=== PATIENT | female | born 1970 | race Caucasian/White ===

== ENCOUNTER 2022-04-08 07:50 | Outpatient (CLI) | payer BC, SELFPAY ==
--- NOTE | 2022-04-08 08:15 | CRLHL7_ITS ---
For Patients: As a result of the Century Cures Act, medical imaging exams and procedure reports are released immediately into your electronic medical record. You may view this report before your referring provider. If you have questions, please contact your health care provider. BILATERAL SCREENING MAMMOGRAM WITH COMPUTER-AIDED DETECTION AND TOMOSYNTHESIS TECHNIQUE: CC and MLO views were obtained. These mammographic images have been obtained using full-field digital technique. These mammographic images were interpreted with the benefit of computer-aided detection. Breast Tomosynthesis was used in this interpretation. COMPARISON FILM: 03/27/21, 03/11/20, 04/07/19. FINDINGS: The breasts are almost entirely fatty IMPRESSION: There is no radiographic evidence for malignancy. ASSESSMENT: BI-RADS Category 2: Benign RECOMMENDATION: Routine screening mammogram in 1 year. A lay language report of this examination will be provided to the patient. Henri Yates M.D. Diagnostic/Nuclear Medicine Radiologist [email or web address] RODO/Dictated by: Henri Yates MD @ 04/08/2022 8:47:00 AM (Electronically Signed)
== END 2022-04-08 07:51 | disposition home or self-care (01) ==
LOC: MAMMO 07:53
DX: Z12.31 Encounter for screening mammogram for malignant neoplasm of breast (principal)
CPT/HCPCS: 77063; 77067

== ENCOUNTER 2023-04-19 11:15 | Outpatient (CLI) | payer BC, SELFPAY ==
--- NOTE | 2023-04-19 11:30 | CRLHL7_ITS ---
For Patients: As a result of the Century Cures Act, medical imaging exams and procedure reports are released immediately into your electronic medical record. You may view this report before your referring provider. If you have questions, please contact your health care provider. BILATERAL SCREENING MAMMOGRAM WITH COMPUTER-AIDED DETECTION AND TOMOSYNTHESIS TECHNIQUE: CC and MLO views were obtained. These mammographic images have been obtained using full-field digital technique. These mammographic images were interpreted with the benefit of computer-aided detection. Breast Tomosynthesis was used in this interpretation. COMPARISON FILM: 04/08/22, 03/27/21, 03/11/20. FINDINGS: The breasts are almost entirely fatty IMPRESSION: There is no radiographic evidence for malignancy. ASSESSMENT: BI-RADS Category 1: Negative RECOMMENDATION: Routine screening mammogram in 1 year. A lay language report of this examination will be provided to the patient. Eduar Fisher M.D. Diagnostic Radiologist [email or web address] RODO/Dictated by: Eduar Fisher MD @ 04/20/2023 9:29:00 AM (Electronically Signed)
== END 2023-04-19 11:16 | disposition home or self-care (01) ==
LOC: MAMMO 11:16
PROVIDERS: Visit Provider Nurse Practitioner Family
DX: Z12.31 Encounter for screening mammogram for malignant neoplasm of breast (principal)
CPT/HCPCS: 77063; 77067

== ENCOUNTER 2024-03-15 09:05 | Outpatient (CLI) | payer BC, SELFPAY ==
--- NOTE | 2024-03-15 09:15 | CRLHL7_ITS ---
For Patients: As a result of the Cures Act, medical imaging exams and procedure reports are released immediately into your electronic medical record. You may view this report before your referring provider. If you have questions, please contact your health care provider. BILATERAL SCREENING MAMMOGRAM WITH COMPUTER-AIDED DETECTION AND TOMOSYNTHESIS TECHNIQUE: CC and MLO views were obtained. These mammographic images have been obtained using full-field digital technique. These mammographic images were interpreted with the benefit of computer-aided detection. Breast Tomosynthesis was used in this interpretation. COMPARISON FILM: 04/19/23, 04/08/22, 03/27/21. FINDINGS: The breasts are almost entirely fatty IMPRESSION: There is no radiographic evidence for malignancy. ASSESSMENT: BI-RADS Category 1: Negative RECOMMENDATION: Routine screening mammogram in 1 year. A lay language report of this examination will be provided to the patient. Eduar Fisher M.D. Diagnostic Radiologist [email or web address] Transcribed: 2:49 p.mSyed billings/Dictated by: Eduar Fisher MD @ 03/21/2024 9:15:00 AM (Electronically Signed)
== END 2024-03-15 09:06 | disposition home or self-care (01) ==
PROVIDERS: Visit Provider Nurse Practitioner Family
DX: Z12.31 Encounter for screening mammogram for malignant neoplasm of breast (principal)
CPT/HCPCS: 77063; 77067

== ENCOUNTER 2025-04-09 07:26 | Outpatient (CLI) | payer BC, SELFPAY ==
--- NOTE | 2025-04-09 07:45 | CRLHL7_ITS ---
For Patients: As a result of the Century Cures Act, medical imaging exams and procedure reports are released immediately into your electronic medical record. You may view this report before your referring provider. If you have questions, please contact your health care provider. INDICATION: BILATERAL SCREENING MAMMOGRAM, ASYMPTOMATIC 54 Y/O FEMALE COMPARISON: 03/15/2025, 04/19/2023, 04/08/2022 TECHNIQUE: Digital mammogram in CC and MLO projections including computer-aided detection (CAD) and tomosynthesis. BREAST COMPOSITION: There are scattered areas of fibroglandular density. FINDINGS: No suspicious findings. ASSESSMENT: BI-RADS 1 Negative RECOMMENDATION: Annual screening mammogram. A lay language report of this examination will be provided to the patient. Dictated by: Eduar Fisher MD @ 04/09/2025 09:52:52 (Electronically Signed)
== END 2025-04-09 07:27 | disposition home or self-care (01) ==
LOC: MAMMO 07:27
PROVIDERS: Visit Provider Nurse Practitioner Family
DX: Z12.31 Encounter for screening mammogram for malignant neoplasm of breast (principal)
CPT/HCPCS: 77063; 77067